=== PATIENT | female | born 1980 | race Caucasian/White ===

== ENCOUNTER 2025-07-06 23:00 | Observation (INO) | payer BC, SELFPAY ==
[2025-07-06] VITALS (57 sets, daily range): BP systolic 104–165; BP diastolic 54–126; BMI 33.6
[2025-07-06] MEDS: DILAUDID 1 MG IV (15:24)
[2025-07-06 15:27] LABS: Hematocrit 37.5 % (37.0-47.0); Hemoglobin 12.7 g/dL (12.0-16.0); Mean Corp Hgb Conc. 33.9 g/dL (33.0-37.0); Mean Corpuscular Volume 83.9 fL (81.0-99.0); Nucleated Red Blood Cells % 0 %; Platelet Count 245 10^3/uL (130-400); Red Cell Dist. Width 13.3 % (11.5-14.5)
[2025-07-06 15:47] LABS: ALT (SGPT) 20 U/L (0-35); AST (SGOT) 19 U/L (14-36); Albumin 4.2 g/dl (3.5-5.0); Alkaline Phosphatase 66 U/L (38-126); Blood Urea Nitrogen 17 mg/dl (7-17); Calcium 9.4 mg/dl (8.4-10.2); Carbon Dioxide 24 mmol/L (22-30); Chloride 103 mmol/L (98-107); Estimated Creatinine Clearance 107 ml/min; Glucose 114 mg/dl (70-99); Potassium 4.1 mmol/L (3.5-5.1); Sodium 135 mmol/L (135-145); Total Protein 7.1 g/dl (6.3-8.2); eGFR > 60.00
--- NOTE | 2025-07-06 15:52 | ED.GENMED ---
History of Present Illness
General
Chief Complaint: Musculo-Skeletal Complaint
Source: patient
Exam Limitations: none
Time Seen by Provider: 07/06/25 15:13
Nursing documentation reviewed up to this point in time: agreed with
History of Present Illness
History of Present Illness:
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 Patient reports that one of the dogs pulled her and she fell down, with her right ankle wedged against a [place]. Patient
reports she heard a crack. Patient reports significant pain and swelling of her right ankle. She did not hit her head. She denies headache, neck pain, back pain and chest pain. She is not on blood thinners.
Past History
Past History
ED Past Medical History: HTN and Hypercholesterolemia
ED Past Surgical History: Cholecystectomy
Social History
Tobacco: Former smoker
Alcohol: Occasional
Drug: Marijuana
Personal: Other
Living: with family
Employment: Employed
Family History
Family History: Other
Review of Systems
Review of Systems
Allergies reviewed?: Yes
All Other Systems: ROS reviewed and negative except as documented in HPI and ROS
Constitutional: Reports no symptoms
EENT: Reports no symptoms
Respiratory: Reports no symptoms
Cardiac: Reports no symptoms
ABD/GI: Reports no symptoms
: Reports no symptoms
Musculoskeletal: Reports joint pain and joint swelling
Skin: Reports no symptoms
Neurological: Reports no symptoms
Endocrine: Reports no symptoms
Hematologic/Lymphatic: Reports no symptoms
Psychiatric: Reports no symptoms
Phy Exam
Physical Exam
Physical Exam:
Physical Exam
General: no apparent distress, not acutely ill. Atraumatic appearing face and head
Neck: supple. Nontender C-spine
Heart: s1/s2 regular rate and rhythm, no murmur. equal radial pulses. No chest wall tenderness. No vertebral spine tenderness
Lungs: no acute respiratory distress. clear bilaterally
Abdomen: normal bowel sounds. not tender. no CVAT
Neuro: alert and oriented. no focal neurological deficits
Skin: no rash
Psychiatric: well kept. interactive and cooperative
Extremities: Nontender shoulders and upper extremities. Pelvis and hips nontender. Right ankle appears swollen and deformed. Strong pulses bilateral hands and feet.
Course
Orders/Labs/Results
Orders:
Orders
07/06/25 15:16
CR Ankle - Right Min 3 Views * Urgent
Comment:
Reason For Exam: deformity
07/06/25 15:18
Complete Blood Count/With Diff Urgent
Comprehensive Metabolic Panel Urgent
07/06/25 15:22
HYDROmorphone [Dilaudid] 1 mg IV NOW STA
07/06/25 17:18
Propofol [Diprivan] 20 ml .ROUTE .STK-MED
07/06/25 18:06
HYDROmorphone [Dilaudid] 0.5 mg IV NOW STA
Ankle, Right 2 view CR [CR Ankle - Right 2 Views] Urgent
Comment:
Reason For Exam: portable post-reduction
07/06/25 18:22
HYDROmorphone [Dilaudid] 0.5 mg IV NOW STA
07/06/25 18:34
ORTHOPEDIC CONSULT Urgent
Consulting Provider: Jesus Baeza
Was physician already notified: Yes
Reason for consult: right ankle fracture
07/06/25 18:50
Lidocaine 1% [Xylocaine 1%] 20 ml INJ ONCE ONE
07/06/25 18:57
Propofol [Diprivan] 20 ml .ROUTE .STK-MED
07/06/25 19:20
Ankle, Right 2 view CR [CR Ankle - Right 2 Views] Urgent
Comment:
Reason For Exam: post-reduction
Abnormal Lab Results
07/06/25
15:18
WBC 12.1 H 10^3/uL
(4.8-10.8)
Abs Immat Gran (auto) 0.1 H 10^3/uL
(0-0.05)
Absolute Neuts (auto) 9.1 H 10^3/uL
(1.4-6.5)
Absolute Monos (auto) 0.7 H 10^3/uL
(0.1-0.6)
Immature Gran % 0.9 H %
(0-0.5)
Neutrophils % 75.7 H %
(42.2-75.2)
Lymphocytes % 15.7 L %
(20.5-51.1)
Glucose 114 H mg/dl
(70-99)
07/06/25 15:18
07/06/25 15:18
Vital Signs
Initial and Last Documented VS:
Initial Vital Signs
Temp Pulse Resp BP Pulse Ox
98.6 F 85 17 124/89 99
07/06/25 15:05 07/06/25 15:05 07/06/25 15:05 07/06/25 15:05 07/06/25 15:05
Last Documented Vital Signs
Temp Pulse Resp BP Pulse Ox
98.5 F 74 16 111/77 95
07/06/25 19:55 07/06/25 19:55 07/06/25 19:55 07/06/25 19:55 07/06/25 19:55
Procedures
Moderate Sedation
ASA Risk Score: Class I
Chart and allergies reviewed: Yes
Consent for anesthesia obtained: Yes
Time out completed (validating right patient & procedure): Yes
Moderate Sedation Start Time(when first medication is given): 17:55
History of difficult intubation: No
Airway free of obstruction: Yes
Patient has a gag reflex: Yes
Patient is able to open mouth: Yes
Patient has no dentures: Yes
Patient has no loose teeth: Yes
Medication administered by Provider during Moderate Sedation: IV Propofol (mg)
Total dose administered: 140
Time drug administered: 17:55
Moderate Sedation Procedure End Time: 18:10
Joint/Fracture Reduction
Right Ankle:
Indication for procedure:: displaced fracture of R ankle
Procedure completed by: Dr Abbott
Consent form signed: Yes
If no, reason: Emergency procedure
Joint reduced: with anesthesia sedation
Post reduction exam: unstable
Capillary Refill: normal
Normal distal neurovascular exam?: Yes
MDM/Problems Addressed
Differential Diagnosis Includes:
Right ankle fracture, right ankle dislocation, right ankle contusion
MDM/Problems Addressed:
Patient presents with acute right pain and swelling of right ankle
Chronic conditions affecting care: HTN
Acute Exacerbation and/or Progression of Chronic Illness:
Patient is acutely hypertensive but only slightly. I feel this is likely due to pain and anxiety
*Radiology
Radiology exam reviewed: preliminary read by ED provider (Fracture of distal tibia and fibula. Right ankle film reviewed by me) and radiology read reviewed
*Pulse Oximetry
SaO2: 99
Oxygen Mode of Delivery: Room air
Patient hypoxic: no
Comment: 99% on room air
*EKG
Interpreted by ED Provider?: NA
*[employer] Interpretation
Rate: normal
Interpretation: normal
Rhythm: sinus
*Critical Care Note
Total Time (30-74mins, 75-104mins- exclusive of procedures): Not Applicable
Data Reviewed
Review of Other/Old Records Reveals: Operative Reports (Operative report reviewed from 2021 when patient had urology surgery for stone extraction)
Patient Management
Discussion with other providers: Other (Dr. Jesus Baeza)
Update Note
Update Note:
Patient underwent a total of 2 conscious sedations, both performed by me. First conscious sedation was successful, however, right ankle was not adequately reduced. Patient then verbally consented for a second conscious sedation which was started
at 19:06. She was given a total of 130 mg of propofol. Conscious sedation time was stopped at 19:25. Time out for conscious sedation was at 19:05. During second conscious sedation, Dr. Baeza successfully reduced patient's right ankle.
Second right ankle x-ray reviewed by me. Shows displaced right ankle.
Third right ankle x-ray reviewed by me. Shows better reduction of right ankle
9:00 PM. Patient complaining of severe pain and nausea. Patient feels unable to go home due to pain.
ED Attending Note
-
Portions of this chart may have been created with voice recognition software.� Occasional wrong word or��sound alike� substitutions may have occurred due to the inherent limitations of voice recognition software.
Discharge Plan
Departure
Patient Disposition: Admit
Date of Disposition: 07/06/25
Time of Disposition: 19:59
Admit to: Med/Surg
Presentation/result/management discussed w/ accepting MD/DO: Hospitalist
Patient with high blood pressure during this ER visit?: No
Condition: Good
Covid-19: Not Applicable
Discharge Problem:
Trimalleolar fracture of right ankle
Prescriptions:
No Action
No Current Medications
Patient Comments:
pt states that she takes no meds including pnv.
oxycodone-acetaminophen 5 MG/325 MG tablet
1 tab PO Q6HPRN PRN (Reason: pain) Qty: 15 0RF
tamsulosin 0.4 MG capsule
0.4 mg PO DAILY Qty: 7 0RF
ondansetron 4 MG tablet,disintegrating
4 mg PO TIDPRN PRN (Reason: nausea/vomiting) Qty: 12 0RF
ketorolac 10 MG tablet
10 mg PO Q6HPRN PRN (Reason: pain) Qty: 12 0RF
diclofenac sodium 75 mg tablet,delayed release (DR/EC)
75 mg PO BID Qty: 10 0RF
Referrals:
NONE,* [Active, Internal Medicine]
Jesus Baeza MD [Active, Orthopedics]
Referral Note: Call to see in about 7 days
Interventions
Interventions:
*Risk Screen - Suicide Last Done: 07/06/25 15:10
*General Assessment Last Done: 07/06/25 15:10
*Neglect/Abuse Screening Last Done: 07/06/25 15:10
*ED- Fall Risk Assessment Last Done: 07/06/25 15:10
*ED COVID-19 Vaccine History Last Done: 07/06/25 15:10
ED-Musculoskeletal Assessment Last Done: 07/06/25 15:10
Discharge Date and Time
Print Language: TURKISH
[2025-07-06] MEDS: DILAUDID 0.5 MG IV ×2 (18:09→18:25)
[2025-07-06] MEDS: XYLOCAINE 1% 12 ML INJ (19:07)
--- NOTE | 2025-07-06 19:44 | CON.ORTHO ---
Consultation
-
Date/Time Consultation Performed: 07/06/25 715 PM
Consultation - Orthopedics
History
45-year-old female presents emergency department status post fall complaints of right ankle pain inability to bear weight. She was subsequently diagnosed with a right ankle fracture dislocation. She underwent attempted closed reduction by
emergency department was unsuccessful. Orthopedics was consulted for aid in the reduction of her ankle dislocation. Patient reports that she was walking her dog prior to presentation and one of her dogs pulled her and she subsequently twisted her
ankle and reports that she was wedged against a [place]. Currently patient localizes pain to the right ankle. Pain is made worse with direct palpation affected area and with any attempted motion
Allergies / Home Medications
Past medical history: Hypertension, hypercholesterolemia
Past surgical history: Cholecystectomy
Social history: Occasional alcohol use, marijuana use, former tobacco smoker, lives with family
Family history: Not pertinent
Allergy/AdvReac Type Severity Reaction Status Date / Time
Sulfa (Sulfonamide Allergy Hives Verified 07/06/25 15:09
Antibiotics)
sulfamethoxazole (From Allergy Hives Verified 07/06/25 15:09
Bactrim)
trimethoprim (From Bactrim) Allergy Hives Verified 07/06/25 15:09
�Medication �Instructions �Recorded
No Current Medications 09/14/13
ketorolac 10 mg tablet 10 mg PO Q6HPRN PRN pain #12 tabs 02/26/22
ondansetron 4 mg disintegrating 4 mg PO TIDPRN PRN nausea/vomiting 02/26/22
tablet #12 tabs
oxycodone-acetaminophen 5 mg-325 1 tab PO Q6HPRN PRN pain #15 tabs 02/26/22
mg tablet
tamsulosin 0.4 mg capsule 0.4 mg PO DAILY #7 caps 02/26/22
diclofenac sodium 75 mg 75 mg PO BID #10 tabs 11/15/23
tablet,delayed release
10 point review systems reviewed and negative unless otherwise stated
General: Conversant, uncomfortable in appearance
Musculoskeletal right lower extremity
Skin intact, there is moderate swelling and deformity noted to the right ankle
Patient is able to weakly flex and extend toes
Ankle range of motion testing deferred
Sensation tact light touch observations distally
Brisk cap refill
Diagnostic studies
Initial x-rays multiple views right ankle show trimalleolar right ankle fracture dislocation with posterior dislocation of talus relative to tibia
Procedure: Right ankle fracture dislocation reduction and placement of short leg splint
Risks and benefits of procedure discussed at length with patient verbal consent was obtained. Timeout was performed with emergency room providers. Sedation was administered. Approximately 12 cc of 1% lidocaine without epinephrine was then
injected via anterolateral approach after cleaning skin into the tibiotalar joint. After appropriate sedation, reduction maneuver was performed. This palpable clunk. AO style splint was then placed and molded appropriately. Of note patient was
somewhat combative during placement of splint need to be restrained while reduction was performed. Patient tolerated procedure well without complication. Postoperative radiograph showed appropriate reduction of the talus under the tibia. There
was some persistent lateral translation however. Revisualization of trimalleolar ankle fracture.
Vital Signs / Lab Results
Temp Pulse Resp BP Pulse Ox
98.5 F 70 19 111/67 95
07/06/25 19:05 07/06/25 19:42 07/06/25 19:42 07/06/25 19:42 07/06/25 19:42
07/06/25 15:18
07/06/25 15:18
Assessment / Plan
45-year-old female status post fall with right ankle fracture dislocation status post closed reduction emergent apartment. I did have a lengthy discussion with patient guarding diagnosis treatment options. Patient will require surgical
stabilization. She is already somewhat swollen. Would recommend soft tissue stabilization and elevation of the right lower extremity. Explained her that I would likely recommend waiting about a week before repeat clinical assessment to evaluate
the amenability of the soft tissues for surgical intervention. Patient stated understanding to this. Plan to follow-up with with myself next week for repeat clinical assessment.
Nonweightbearing right lower extremity
Pain control
Recommend ice elevation until follow-up
Follow-up next week for repeat clinical assessment evaluation soft tissues
Please reach out with questions or concerns
--- NOTE | 2025-07-06 21:20 | HPS.HSE ---
Addendum entered and electronically signed by Singh Bean DO 07/06/25 22:54:
Patient seen and examined independently. Agree with findings and plan as set forth by MARINA Paul.
Patient is a 45y F with H significant for hypertension who presents to ED complaining of R ankle pain and deformity after injury suffered while dog-walking this afternoon. Patient notes that she was walking dogs when she was pulled by one of
the animals. She braced her R foot against a large rock, but was pulled anyway and fell. She noted immediate pain and deformity in the R ankle.
Patient was seen in the ED by Ortho where R ankle was reduced and splinted.
Plan is for surgery in about a week or so after swelling is improved.
Unfortunately, patient was having significant pain in the ED and was unable to stand / ambulate and will be hospitalized for pain control.
Ass:
Right Ankle Fracture
Hypertension
Anxiety / Depression
Plan:
Observe overnight for further evaluation and treatment.
Continue pain control efforts / supportive care.
PT eval in the AM to work with crutches.
Follow-up with Ortho as an outpatient.
Original Note:
Family Physician
-
Family Physician: Luigi Enriquez
Chief Complaint
-
right ankle pain
History of Present Illness
Patient is a 45-year-old female with past medical history hypertension and depression/anxiety who presented to [facility] ED for evaluation of right ankle pain. Patient reports that she was walking dogs this afternoon with them tethered around her waist
when one pulled. She planted right foot near a large rock when the pull of the dog caused her to fall down. She denies any head strike. She did hear a crack in right ankle associated with severe pain.
Medical History
Past Medical History
Past Medical History: Reports Other
Additional Past Medical History:
hypertension
depression/anxiety
Past Surgical History: Reports Other
Additional Past Surgical History:
cholecystectomy
wisdom teeth extraction
Social History
Tobacco: Non-smoker
Alcohol: None
Drug: Marijuana (smokes daily and uses THC vape )
Living: With Family
Family History
Family History: Other (Father: CAD )
Allergies / Home Medications
Allergies reflects when Allergies were last updated in [facility].
Home Medications with original date entered in [facility]
Allergy/Medication List:
Allergies
Allergy/AdvReac Type Severity Reaction Status Date / Time
Sulfa (Sulfonamide Allergy Hives Verified 07/06/25 15:09
Antibiotics)
sulfamethoxazole (From Allergy Hives Verified 07/06/25 15:09
Bactrim)
trimethoprim (From Bactrim) Allergy Hives Verified 07/06/25 15:09
Home Medications
escitalopram oxalate 20 mg tablet 20 mg PO DAILY 07/06/25
lisinopril 10 mg tablet 10 mg PO DAILY 07/06/25
Review of Systems
-
History Source: Patient
Constitutional: Reports No Symptoms
EENT: Reports No Symptoms
Respiratory: Reports No Symptoms
Cardiac: Reports No Symptoms
Abdomen/GI: Reports No Symptoms
: Reports No Symptoms
Musculoskeletal: Reports Joint Pain (right ankle pain and edema ) and Joint Swelling
Skin: Reports No Symptoms
Neurological: Reports No Symptoms
Endocrine: Reports No Symptoms
Hematologic/Lymphatic: Reports No Symptoms
Psych: Reports No Symptoms
Physical Exam
Vital Signs
Vital Signs
Temp Pulse Resp BP Pulse Ox
98.5 F 74 16 111/77 95
07/06/25 19:55 07/06/25 19:55 07/06/25 19:55 07/06/25 19:55 07/06/25 19:55
Physical Exam
General: Well Developed, Well Nourished, No Apparent Distress, Comfortable and Conversant
HEENT: NormoCephalic, Moist mucous membranes and Atraumatic
Respiratory: Clear and Non Labored Respirations
Cardiac: S1/S2 and Regular Rhythm; No Murmur, Rub or Gallop
Breast: Deferred by me
GI: Soft, Non Tender, Non Distended and Normal Bowel Sounds; No Organomegaly
Rectal: Deferred by Provider
Genito-urinary: Deferred by me
Musculoskeletal: No Clubbing, No Cyanosis and Edema, Right Lower Extremity (right ankle edema, splint in place, cap refill <3 seconds )
Skin: Warm and IV/Catheter Site
Neuro: Awake, AO x 3 and Nonfocal/grossly intact
Hematologic/Lymphatic: No Lymphadenopathy
Psych: Calm and Intact Judgment/Insight
Laboratory Results
-
07/06/25 15:18
07/06/25 15:18
Laboratory Results
Total Bilirubin 0.4 mg/dl (0.2-1.3) 07/06/25 15:18
AST 19 U/L (14-36) 07/06/25 15:18
ALT 20 U/L (0-35) 07/06/25 15:18
Alkaline Phosphatase 66 U/L (38-126) 07/06/25 15:18
Data Reviewed
-
Diagnostic Radiology: Report Reviewed by me
Lab Data: Labs Reviewed by me
Impression/Plan
-
IMPRESSION/PLAN:
#Unstable trimalleolar ankle fracture
Right ankle x-ray: Satisfactory reduction of the ankle joints. Trimalleolar ankle fracture redemonstrated.
- Admit to med/surg
- Consult Orthopedics
- pain regimen
- antiemetics
#hypertension
- continue lisinopril
#depression/anxiety
- continue escitalopram
Code status: Full code
DVT prophylaxis: Lovenox sq
[2025-07-06] MEDS: ZOFRAN 4 MG IV (21:52)
[2025-07-06] MEDS: TORADOL 30 MG IV (21:53)
[2025-07-07] VITALS: BP 118/68
[2025-07-07 00:30] VITALS: BP 130/77
[2025-07-07 01:06] VITALS: BP 147/95; BMI 35.0
[2025-07-07] MEDS: TYLENOL 650 MG PO (01:36)
[2025-07-07] MEDS: TORADOL 10 MG IV (04:03)
--- NOTE | 2025-07-07 04:38 | PTCARENOTE ---
0130 received pt from ER via stretcher.pt pulled over to bed [id number]. Oriented pt to room, call ortiz and POC. Inst pt on pain management plan. See MAR for documentation.
[2025-07-07] MEDS: LEXAPRO 20 MG PO (07:28)
[2025-07-07] MEDS: ZESTRIL 10 MG PO (07:28)
[2025-07-07 07:30] VITALS: BP 121/73
--- NOTE | 2025-07-07 09:12 | W.PN.HOSP.TC ---
Today's Communication/Plan
-
Pain control. NWB RLE. ICE and elevation.
PT eval
outpt ortho f/u in a week to assess for surgical intervention
discharge home
Assessment / Plan
Assessment / Plan
45-year-old female with HTN, depression, presenting with right ankle fracture.
Unstable trimalleolar ankle fracture
Patient was seen in the ED by Ortho where R ankle was reduced and splinted.
Right ankle x-ray: Satisfactory reduction of the ankle joints. Trimalleolar ankle fracture redemonstrated.
- pain regimen change to ibuprofen and norco
- antiemetics
ICE, elevation
NWB
1 week outpt orth of/u for eval for surgical intervention
PT eval rec home with RW
hypertension
BP controlled
- continue lisinopril
depression/anxiety
- continue escitalopram
Code status: Full code
DVT prophylaxis: Lovenox sq
discharge home
Anticipated Discharge: Today
Subjective/Interval History
-
Date of Service: July 07, 2025
Pt able to work with PT and use a rolling walker
Objective Data
-
Vital Signs:
Vital Signs
Temp Pulse Resp BP Pulse Ox
98.6 F 73 18 121/73 100
07/07/25 07:30 07/07/25 07:30 07/07/25 07:30 07/07/25 07:30 07/07/25 07:30
I&O
07/06/25 07/07/25 07/08/25
06:59 06:59 06:59
Intake Total 60 / 60
Balance 60 / 60
Review of Systems
-
All other systems: Reviewed and negative
Physical Exam
-
General: No Apparent Distress
HEENT: Moist Mucous Membranes, Anicteric and PERRLA
Respiratory: Clear to Auscultation; Negative Wheezes, Rales or Rhonchi
Cardiac: Regular Rhythm and S1/S2; Negative Murmur, Rub or Gallop
GI: Soft, Nontender, Nondistended and Normal Bowel Sounds
Musculoskeletal: No Edema
Skin: Warm and Dry; Negative Rash, Ulcers or Lesions
Neuro: Awake and AO x 3
Hematologic / Lymphatic: No Lymphadenopathy
Psych: Calm
Data Reviewed
-
Diagnostic Radiology: Report Reviewed by me
Labs: Labs Reviewed by me
[2025-07-07] MEDS: NORCO 5/325 2 TABLET PO (10:01)
--- NOTE | 2025-07-07 10:42 | CM ---
CM reviewed chart, patient seen bedside, initial assessment completed. Patient resides in a two story home with her two sons, bedroom on second floor (full flight of steps), one step into home. 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
with ADLs/IADLs. Patient PCP Luigi Enriquez, pharmacy [facility], confirms prescription coverage. Patient denies insecurities at home. PT ordered, will require crutches upon discharge. Patient inquiring about d.c. today, TT to Hospitalist. OBS form
verbally reviewed, provided with copy, placed in chart. CM will continue to follow for all discharge planning needs.
Plan; home after PT evals, need crutches prior to d/c
--- NOTE | 2025-07-07 12:19 | W.DCSUMMARY ---
Discharge Summary
Discharge Data
Date of Admission: 07/06/25
Date of Discharge: 07/07/25
Total time spent discharging patient (in min): 35
-
Pending Results: No
Hospital Course
Attending physician on day of discharge:
Cassie Woodson MD
Admission diagnosis:
Right ankle fracture
Discharge diagnosis:
trimalleolar right ankle fracture dislocation
Secondary diagnoses:
HTN
Anxiety/depression
Consultations:
Orthopedic surgery
Procedures:
Reduction of fracture
Hospital course:
45F presented with traumatic injury to right ankle. She was found to have right ankle fracture patient was seen in the ED by Ortho where R ankle was reduced and splinted. She was admitted for pain control overnight, seen by PT in the morning,
discharged with pain medicine and rolling walker and outpatient follow-up with Ortho in 1 week.
Diagnostic findings:
Satisfactory reduction of the ankle joints. Trimalleolar ankle fracture redemonstrated.
Discharge disposition:
Home
Discharge Plan
-
Patient Disposition: Home (Routine Discharge)
Discharge Diagnosis/Procedures: R ankle fracture
Diet: Regular
Activity: Do not bear weight R leg
Driving Restrictions: No driving
Activity Restrictions/Additional Instructions:
Nonweightbearing right lower extremity
Pain control
Recommend ice elevation until follow-up
Follow-up next week for repeat clinical assessment evaluation soft tissues
Instructions: Ankle fracture
Referrals:
Jesus Baeza MD [Active, Orthopedics] - in one week
Luigi Enriquez MD [Family Provider, Family Practice]
Prescriptions:
New
hydrocodone-acetaminophen 5-325 mg Tablet
2 tab PO Q6HPRN PRN (Reason: severe pain) Qty: 30 0RF
ibuprofen 400 mg Tablet
400 mg PO Q6HPRN PRN (Reason: mild pain) Qty: 40 0RF
Continued
lisinopril 10 mg tablet
10 mg PO DAILY
escitalopram oxalate 20 mg tablet
20 mg PO DAILY
Discharge Orders:
Discharge Patient (As Directed); Ordered 07/07/25
Ordered By: Cassie Woodson
Discharge Date and Time
Print Language: PAKISTANI
[2025-07-07 12:45] VITALS: BP 119/70; PULSE 74
[2025-07-07 13:30] VITALS: BP 134/85
== END 2025-07-07 18:26 | disposition home or self-care (01) ==
LOC: 4 WEST ACU 23:00
PROVIDERS: ADMITTING PHYSICIAN Hospitalist; ATTENDING PHYSICIAN Internal Medicine; CONSULT PHYSICIAN Orthopaedic Surgery; EMERGENCY PHYSICIAN Emergency Medicine; FAMILY PHYSICIAN Family Medicine
DX: S82.851A Displaced trimalleolar fracture of right lower leg, initial encounter for closed fracture (principal); E78.00 Pure hypercholesterolemia, unspecified; I10 Essential (primary) hypertension; F12.90 Cannabis use, unspecified, uncomplicated; F32.A Depression, unspecified; Y93.01 Activity, walking, marching and hiking; W01.0XXA Fall on same level from slipping, tripping and stumbling without subsequent striking against object, initial encounter; Z79.899 Other long term (current) drug therapy; Z87.891 Personal history of nicotine dependence; F41.9 Anxiety disorder, unspecified
CPT/HCPCS: 27818; 73600; 73610; 80053; 85025; 96374; 96376; 97116; 97162; 97530; 99152; 99285; G0378

== ENCOUNTER → 2025-07-18 08:42 | Outpatient (REF) | payer BC, SELFPAY ==
[2025-07-18 09:28] LABS: Hematocrit 37.3 % (37.0-47.0); Hemoglobin 12.2 g/dL (12.0-16.0); Mean Corp Hgb Conc. 32.7 g/dL (33.0-37.0); Mean Corpuscular Volume 85.7 fL (81.0-99.0); Nucleated Red Blood Cells % 0 %; Platelet Count 302 10^3/uL (130-400); Red Cell Dist. Width 14.3 % (11.5-14.5)
[2025-07-18 10:04] LABS: ALT (SGPT) 14 U/L (0-35); AST (SGOT) 15 U/L (14-36); Albumin 4.4 g/dl (3.5-5.0); Alkaline Phosphatase 55 U/L (38-126); Blood Urea Nitrogen 15 mg/dl (7-17); Calcium 9.3 mg/dl (8.4-10.2); Carbon Dioxide 24 mmol/L (22-30); Chloride 107 mmol/L (98-107); Glucose 115 mg/dl (70-99); HDL Cholesterol 40 mg/dl; LDL Cholesterol, Calculated 109 mg/dl; Potassium 4.6 mmol/L (3.5-5.1); Sodium 139 mmol/L (135-145); Total Protein 7.0 g/dl (6.3-8.2); Very Low Density Lipoprotein 53 mg/dl (0-30); eGFR > 60.00
[2025-07-18 10:53] LABS: Glycohemoglobin (HgbA1c) 6.2 % (4.0-5.6)
== END ==
LOC: REG 08:42
PROVIDERS: ATTENDING PHYSICIAN Nurse Practitioner Family; OTHER PHYSICIAN Student in an Organized Health Care Education/Training Program
DX: E87.5 Hyperkalemia (principal); R73.03 Prediabetes; Z13.29 Encounter for screening for other suspected endocrine disorder
CPT/HCPCS: 36415; 80053; 80061; 83036; 84443; 85025

== ENCOUNTER → 2025-07-19 11:31 | Outpatient (REF) | payer BC, SELFPAY | LOC: HWRAD 11:31 | PROVIDERS: ATTENDING PHYSICIAN Student in an Organized Health Care Education/Training Program; FAMILY PHYSICIAN Nurse Practitioner Family | DX: M25.571 Pain in right ankle and joints of right foot (principal) | CPT/HCPCS: 73700 ==